=== PATIENT | male | born 1960 | race Caucasian/White ===

== ENCOUNTER 2024-11-13 14:36 | Emergency (ER) | payer MEDICARE, OTHER, SELFPAY ==
[2024-11-13 14:40] VITALS: BP 129/86; PULSE 80; RESP 16; TEMP 36.6; O2SAT 94; BMI 25.2
--- OUTSIDE RECORDS SUMMARY | 2024-11-13 14:40 | XMS_ITS | Clinical Summary ---
Author Organization [facility] Address [facility] [place] [address] Care Team Providers Care Supervisor Central Supply Name Role Phone Yoan Chavez MD Primary Care Provider [phone] Zabrina Harkins Unavailable Meghna Darby RN Unavailable [phone] Elena Bowens VIDEO LIBRARY ASSISTANT Unavailable [phone] Marialuisa Manning PharmD Unavailable [phone] Allergies Active Allergy Reactions Criticality Noted Date Comments Haloperidol Agitation High 03/02/2013 Medications divalproex 250 mg Delayed-Release tabletIndication s:Schizoaffectiv e disorder, unspecified type (HC) TAKE ONE TABLET BY MOUTH AT BEDTIME; TAKE WITH ONE 500 MG TABLET FOR A TOTAL DOSE OF 750 MG AT BEDTIME 30 Tablet 2 5 Active divalproex 500 mg Delayed-Release tabletIndication s:Schizoaffectiv e disorder, unspecified type (HC) Take 1 Tablet (500 mg) by mouth at bedtime. 30 Tablet 2 5 Active hydrOXYzine HCL 25 mg tabletIndication s:Anxiety,Schizo affective disorder, unspecified type (HC) Take 1-2 Tablets (25-50 mg) by mouth at bedtime if needed for Anxiety (sleep). 60 Tablet 2 5 Active Advair Diskus 250-50 mcg/dose diskus inhalerIndicatio ns:COPD, moderate (HC) INHALE ONE PUFF BY MOUTH EVERY 12 HOURS 180 Each 2 11/08/19 25 Discontinu ed(*Med complete/R egimen complete/L evel of care change) cetirizine (ZYRTEC) 10 mg tabletIndication s:Urticaria Take 1 Tablet (10 mg) by mouth once daily. 90 Tablet 3 2 11/08/19 25 Discontinu ed(*Med complete/R egimen complete/L evel of care change) albuterol HFA (PRO-AIR; VENTOLIN; PROVENTIL) 90 mcg/actuation inhalerIndicatio ns:COPD, moderate (HC) INHALE ONE TO TWO PUFFS BY MOUTH EVERY FOUR HOURS WHILE AWAKE DIRECTED Strength: 90 mcg/actuatio n 1 Each 3 11/08/19 25 Discontinu ed(*Med complete/R egimen complete/L evel of care change) celecoxib (CELEBREX) 100 mg capsuleIndicatio ns:Polyarthralgi a Take 1 Capsule (100 mg) by mouth two times daily with meals. 180 Capsule 4 11/08/19 25 Discontinu ed(*Med complete/R egimen complete/L evel of care change) divalproex (DEPAKOTE) 250 mg Delayed-Release tabletIndication s:Schizoaffectiv e disorder, unspecified type (HC) TAKE ONE TABLET BY MOUTH AT BEDTIME; TAKE WITH ONE 500 MG TABLET FOR A TOTAL DOSE OF 750 MG AT BEDTIME 30 Tablet 2 5 10/18/19 25 Discontinu ed(Reorder (E-cancel not sent)) divalproex (DEPAKOTE) 500 mg Delayed-Release tabletIndication s:Schizoaffectiv e disorder, unspecified type (HC) Take 1 Tablet (500 mg) by mouth at bedtime. 30 Tablet 2 5 10/18/19 25 Discontinu ed(Reorder (E-cancel not sent)) hydrOXYzine HCL (ATARAX) 25 mg tabletIndication s:Schizoaffectiv e disorder, unspecified type (HC),Anxiety Take 1-2 Tablets (25-50 mg) by mouth at bedtime if needed for Anxiety (sleep). 60 Tablet 2 01/10/18/19 25 Discontinu ed(Reorder (E-cancel not sent)) Active Problems Problem Noted Date Diagnosed Date Anxiety 01/25/2024 Schizoaffective disorder 03/18/2023 Bipolar disorder 02/01/2023 Other schizoaffective disorders 02/01/2023 Thoracic aortic aneurysm 08/19/2016 Overview (07/20/2020): 4.5 cm on echo 2020 - repeat in 1 year Renal mass 08/19/2016 Overview (08/19/2016): Identified on CT 08/2016 - MRI ordered to further characterize COPD, moderate 06/03/2016 Resolved Problems Problem Noted Date Diagnosed Date Resolved Date Alcoholic intoxication 12/01/202110/25 Bipolar disorder 08/18/2011 09/30/2022 Encounters Date Type Department Care Team Description 11/07/2024 2:30 PM CDT Pharmacist Medication Management [facility] [address] [place] [address] Marialuisa Manning, SheltonD Pharmacist Medication Management (CMR initial - CCM patient - phone visit) 11/07/2024 Travel 11/06/2024 1:00 PM CDT Patient Outreach [facility] Care Management - Advanced Care Team [address] [place] [id number] Elena Bowens LSW Complex Care Management (F/u) 11/02/2024 12:30 PM CDT Patient Outreach [facility] Health Care Management - Advanced Care Team [address] [place] [address] Meghna Darby, tire changer aircraft Management (IA fully completed) 10/31/2024 1:00 PM CDT Patient Outreach [facility] Health Care Management - Advanced Care Team [address] [place] [phone] Zabrina Harkins Complex Care Management (Follow-up: Food Assistance, [facility]) 10/31/2024 Travel 10/26/2024 Patient Outreach [facility] Health Care Management - Advanced Care Team [address] [place] [address] Jovita Garg Complex Care Management (CCM Engagement Outreach/) 10/17/2024 2:15 PM CDT Office Visit [facility] [address] [place], [place] [id number] Anita Maria, LUDIN Medication Management (Things are going fine) 10/17/2024 Travel from Last 3 Months Immunizations Immunization Administration Dates Next Due AMB Influenza, IIV3 (Age >=3 years)(Flu Clinic Only) 05/12/2010,04/16/2009 COVID-19 vaccine (Moderna 100mcg/0.5mL) PF, MDV 09/26/2020,08/26/2020 COVID-19 vaccine (Pfizer-Bio NTech 30mcg/0.3mL) 12YO+ BIVALENT PF, MDV 05/14/2022 COVID-19 vaccine (Pfizer-Bio NTech 30mcg/0.3mL) 12YO+ GREGORY-SUCROSE PF, MDV 01/30/2022 COVID-19 vaccine (Pfizer-Bio NTech 30mcg/0.3mL) PF, MDV 07/02/2021 Hepatitis B (Adult) 10/06/2011,09/07/2011 Influenza, CCIIV3 (Age >=6 M O) (Egg Free) 03/26/2014 Influenza, IIV4 07/07/2021, 0,03/21/2019,2014 Influenza, IIV4 (=>6mos) MDV 07/31/2017 Influenza, Inactivated AIIV4 (Age 65+ Years) Preserv Free 03/16/2020 Pneumococcal Poly,23-Valent (Pneumovax) 09/13/2019 Tdap 08/24/2014 Zoster (Shingrix-RZV, recombinant) 12/21/2022, Family History Medical History Relation Name Comments Other Mother copd, lung kidn ey transplant Relation Name Status Comments Mother Social History Tobacco Use Types Packs/Day Years Used Date Smoking Tobacco: Every Day Cigarettes 0.5 2.4 Started: 06/2022 Smokeless Tobacco: Never Tobacco Cessation:Ready to Q uit: No; Counseling Given: Yes Comments:About half a pk a day Alcohol Use Standard Drinks/Week Comments Yes 0 (1 standard drink = 0.6 oz pure alcohol) just a little bit, once in awhile PHQ-2 Answer Date Recorded PHQ-2 TOTAL SCORE 1 10/17/2024 Social Connections Answer Date Recorded Do you often feel lonely or isolated from those around you? 4 11/02/2024 Financial Resource Strain Answer Date R ecorded Difficulty of Paying Living Expenses 3 11/02/2024 Difficulty of Paying Living Expenses Not on file 11/02/2024 Food Insecurity Answer Date Recorded Do you worry your food will run out before you are able to buy more? 1 11/02/2024 Transportation Needs Answer Date Record ed Does lack of transportation keep you from medica l appointments? 1 11/02/2024 Does lack of transportation keep you from work, meetings or getting things that you need? 2 11/02/2024 Housing Stability Answer Date Recorded What is your housing situation today? 1 11/02/2024 Utilities Answer Date Recorded Do you have trouble paying f or utilities (for example, heat, electricity, water, phone)? 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 Gender Identity Not on file Sexual Orientation Not on file Occupation Industry Job Start Date Job End Date disability Not on file Not on file Not on file Obstetrics History Last Filed Vital Signs Vital Sign Reading Time Taken Comments Blood Pressure 122/84 10/17/2024 2:11 PM CDT Pulse 74 10/17/2024 2:11 PM CDT Temperature 36.7 C (98.1 F) 05/26/2024 11:18 AM FOUNDER / CEO Respiratory Rate 20 05/10/2019 3:20 PM CDT Oxygen Saturation 93% 05/26/2024 11: 18 AM FOUNDER / CEO Inhaled Oxygen Concentration - - Weight 75.2 kg (165 lb 11.2 oz) 10/17/2024 2:11 PM CDT Height 172.7 cm (5' 8) 05/26/2024 11:1 8 AM FOUNDER / CEO Body Mass Index 25.19 05/26/2024 11:18 AM FOUNDER / CEO Plan of Treatment Upcoming Encounters Date Type Department Care Team (Late st Contact Info) Description 11/16/2024 1:00 PM CDT Patient Outreach [facility] Care Management - Advanced Care Team [address] [place], [place] [phone] Elena Bowens LSW [address] [place] [address] 11/22/2024 4:00 PM CDT Pharmacist Medication Management [facility] [address] [place] [address] Marialuisa Manning, PharmD [facility] [place] [phone] 12/11/2024 10:00 AM CDT Orders Only [facility] [address] [place] [address] Lab, [place] 01/24/2025 2:45 PM CDT Office Visit [facility] [address] [place] [address] Anita Maria NP [address] [place] [address] Health Maintenance Due Date Last Done Comments RSV vaccine for adults or (1 - Risk 60-74 years 1-dose series) 2019 Pneumococcal series for age 50+ (2 of 2 - PCV) 09/12/2020 09/13/2019 Fecal testing non-DNA (FIT,FOBT,iFOBT) for age 45-75 10/07/2023 10/06/2022, 08/17/2016 COVID-19 vaccine series ( season) 2024 05/14/2022, 01/30/2022, 07/02/2021, Additional history exists AAA screening age 65-74 2024 Medicare Wellness for age 65+ 2024, 03/20/2019, 11/02/2014 Tetanus booster 08/24/2024 08/24/2014 Influenza Vaccine (Season Ended) 2025 07/07/2021, 03/16/2020, 03/16/2020, Additional history exists BMI (ht and wt on same day) for age 18+ 05/26/2025 05/26/2024, 12/01/2022, 07/02/2020, Additional history exists Depression screening for age 12+ 10/17/2025 10/17/2024, 07/18/2024, 05/30/2024, Additional history exists Lipids for age 45-75 10/25/2028 10/26/2023, 07/02/2020, 02/17/2019, Additional history exists Tdap Completed 08/24/2014 HIV for age 15-65 Completed 04/02/2015, 08/18/2011 Hepatitis C screening for ag e 18-79 Completed 04/02/2015, 08/18/2011 Zoster (shingles) series for age 50+ Completed 12/21/2022, 10/09/2022 Procedures Procedure Name Priority Date/Time Associated Diagnosis Comments LIPID PANEL Routine 10/26/2023 2:30 PM CDT Screening, lipid OCCULT BLOOD IFOBT STOOL Routine 10/06/2022 11:01 AM CDT Screening for colon cancer ANTI HIV 1/2 Routine 04/02/2015 2:29 PM CDT Screen for STD (sexually transmitted disease) ANTI HCV Routine 04/02/2015 2:29 PM CDT Screen for STD (sexually transmitted disease) from Last 3 Months or Most Recently Relevant to Health Maintenance Results * (ABNORMAL) LIPID PANEL (10/26/2023 2:30 PM CDT) Pathologist [facility] CHOLESTEROL,TOTAL 213(H) 100 - 199 mg/dL 10/26/2023 10:14 PM CDT [facility] Comment: Cholesterol, Total Reference Ranges Desirable <200 mg/dL Borderline 200-239 mg/dL High >=240 mg/dL TRIGLYCERIDES 111 <150 mg/dL 10/26/2023 10:14 PM CDT [facility] HDL CHOLESTEROL 38(L) >40 mg/dL 10:14 PM CDT [facility] NON-HDL CHOLESTEROL 175(H) <145 mg/dl 10/26/2023 10:14 PM CDT [facility] CHOL/HDL RATIO 5.61(H) <4.50 10/26/2023 10:14 PM CDT [facility] LDL CHOLESTEROL 153(H) <=130 mg/dL 10/26/2023 10:14 PM CDT [facility] VLDL CHOLESTEROL 22 <=30 mg/dL 10/26/2023 10:14 PM CDT [facility] PROVIDER ORDERED STATUS RANDOM 10/26/2023 10:14 PM CDT [facility] Blood BLOOD SPECIMEN / Unknown Venipuncture / Unknown 10/26/2023 2:30 PM CDT 10/26/2023 2:33 PM CDT Yoan Chavez MD CHEMISTRY Final Resu lt [facility] [address] [place] [address], * OCCULT BLOOD IFOBT STOOL [[id number]] (10/06/2022 11:01 AM CDT) STOOL BLOOD ,IFOBT Negative Negative 10/12/2022 3:19 PM CDT [facility] Stool STOOL SPECIMEN / Unknown Non-Blood / Unknown 10/06/2022 11:01 AM CDT 10/12/2022 11:02 AM CDT Yoan Chavez MD LABORATORY Final Resu lt [facility] [address] [place] [address], * ANTI HCV (04/02/2015 2:29 PM CDT) HEPATITIS C ANTIBODY Non-Reacti ve Non-Reacti ve 04/02/2015 7:03 PM CDT [facility] Blood specimen (specimen) BLOOD SPECIMEN / Unknown Venipuncture / Unknown 04/02/2015 2:29 PM CDT 04/02/2015 2:29 PM CDT Narrative [facility] - 04/02/2015 7:03 PM CDT Antibodies to HCV not detected; does not exclude the possibility of exposure to HCV. Yoan Chavez MD SEND OUTS Final Resu lt [facility] [address] [place] [address], [place] * ANTI HIV 1/2 (04/02/2015 2:29 PM CDT) HIV-1/HIV-2 ANTIBODY Non-Reacti ve Non-Reacti ve 04/02/2015 7:04 PM CDT [facility] Blood specimen (specimen) BLOOD SPECIMEN / Unknown Venipuncture / Unknown 04/02/2015 2:29 PM CDT 04/02/2015 2:29 PM CDT Narrative [facility] - 04/02/2015 7:04 PM CDT HIV-1 p24 and HIV-1/HIV-2 Ab not detected Yoan Chavez MD SEND OUTS Final Resu lt Performing Organization Address City/[facility]/ZIP Co de Phone Number [facility] [address] [place] [address], from Last 3 Months or Most Recently Relevant to Health Maintenance Insurance MEDICARE PB ONLY MEDICARE PART A HB ONLY MEDICARE PART B HB ONLY MEDICA CHOICE CARE Care Teams Supervisor Central Supply Relationship Specialty Start Date End Date Yoan Chavez MD [address] [place] [phone] PCP - General Family Practice 08/02/13 Zabrina Harkins [address] [place] [address] Complex Care Management Care Guide 10/27/24 Meghna Darby, MINDA [address] [place] [address] Complex Care Management Registered Nurse 10/27/24 Elena Bowens LSW [address] [place] [address] Complex Care Management Manager Work 11/02/24 Marialuisa Manning, Stacy [address] [place] [phone] Pharmacist Medication Management Pharmacology 11/02/24 11/03/27
--- NOTE | 2024-11-13 15:14 | ED.GENADULT ---
HPI - General Adult General Date Seen: 11/13/24 Chief complaint: Dental/Oral/Mouth Injury/Pain Stated complaint: Dental issues, sent by [facility] Time Seen by Provider: 11/13/24 15:14 History of Present Illness HPI narrative: 64 yo M who is sent to the emergency department today by his dentist. His dentist feel that he needs to be admitted for IV antibiotics because he has had swelling on the left side of his jaw for 3-5 days. He apparently was at his dentist's office today and they were concerned about the increasing swelling. He does not have any history of diabetes, cancer, immunosuppression. He is a smoker and has a COPD. He uses Advair and albuterol for that. No oral steroids. He has had trouble with his teeth for a long time. He notes that probably last fall he had a fracture of the 1st molar on his left lower jaw. He had a little bit of pain after that but it got better. Lately, since last week he started having increasing pain and since last Wednesday or and had developing swelling on the left gums and his left lower cheek. He decided to go to the dentist. He went into the [place] dental clinic today and they saw that he had an abscess and infection there. He is apparently scheduled to have the tooth pulled by an oral surgeon tomorrow at the dental clinic in [place] but was told by his dentist that he should come to the ER to get some IV antibiotics today to start treating the infection. He has no history of diabetes or immunosuppression. No history of cancer. Related Data Home Medications ?Medication ?Instructions ?Recorded ?Confirmed divalproex 250 mg tablet,delayed PO 11/13/24 release divalproex 500 mg tablet,delayed PO 11/13/24 release hydroxyzine HCl 25 mg tablet 25 mg PO BID 11/13/24 11/13/24 Allergies Allergy/AdvReac Type Severity Reaction Status Date / Time haloperidol (From Haldol) Allergy Unknown Verified 11/13/24 14:42 [facility] Social History Smoking Status: Unknown if ever smoked Exam Narrative: Exam Narrative: Constitutional: Appears well-developed and well-nourished. Alert. Conversant. Non toxic. HENT: Head: Atraumatic. Nose: Nose normal. He has subtle swelling on the left lower cheek adjacent to his left mandible body. I do not see submandibular swelling. No trismus. No evidence for Reyes's angina or submandibular abscess. Mouth/Throat: Oral mucosa is clear and moist. no trismus. Pharynx normal. Tonsils symmetric. No tonsillar enlargement, erythema, or exudate. Airway patent. Phonation normal. No signs of any submandibular swelling or deviation of the tongue. He does have swelling of the gingival tissue on the left mandible lateral to the anterior molar there (tooth number 19) with roughly a 1 cm area of swelling and fluctuance. Suspicious for a gingival abscess. Eyes: Conjunctivae normal. EOM normal. Pupils equal, round, and reactive to light. No scleral icterus. Neck: Normal range of motion. Neck supple. No tracheal deviation present. Cardiovascular: Normal rate, regular rhythm. No gallop. No friction rub. No murmur heard. Symmetric radial artery pulses Pulmonary/Chest: Effort normal. No stridor. No respiratory distress. No wheezes. No rales. No rhonchi . No tenderness. Musculoskeletal: RUE: Normal range of motion. No tenderness. No deformity LUE: Normal range of motion. No tenderness. No deformity RLE: Normal range of motion. No edema. No tenderness. No deformity LLE: Normal range of motion. No edema. No tenderness. No deformity Lymph: No anterior or posterior cervical or submental adenopathy. Neurological: Alert and oriented to person, place, and time. Normal strength. CN II-VII intact. No sensory deficit. GCS eye subscore is 4. GCS verbal subscore is 5. GCS motor subscore is 6. Normal coordination Skin: Skin is warm and dry. No rash noted. No pallor. Normal capillary refill. Psychiatric: Normal mood. Normal affect. Const: Vital Signs, click to edit/add: Vital Signs - 24 hr 11/13/24 14:40 11/13/24 16:30 Temperature 97.9 F Pulse Rate [Pulse Oximeter] 80 68 Respiratory Rate 16 Blood Pressure [Ri ght Upper Arm] 129/86 121/82 Pulse Oximetry 94 93 Oxygen Delivery Me thod Room Air Room Air Course Course ED Course: Procedure: Left inferior alveolar nerve block Indication: Dental and jaw pain from left-sided mandibular gingival abscess Verbal consent obtained from the patient. Patient was positioned and prepared appropriately. Block was performed using landmark technique. Infiltration of a total of 4 mL of 1% lidocaine with epi was achieved. Aspiration confirmed no intravascular injection. Patient noted subsequent numbness of his left lip, tongue, jaw. No complications were noted. Procedure: Incision and drainage of left gingival abscess Indication: Gingival abscess Verbal consent from the patient After appropriate anesthesia I used a 18 gauge needle tip to open the wound and created a small incision with subsequent drainage of 1 or 2 mL of purulent bloody fluid. Patient tolerated the procedure well. Vital Signs Vital signs: Initial Vital Signs Temperature 97.9 F 11/13/24 14:40 Temperature Source Temporal Artery Scan 11/13/24 14:40 Pulse Rate 80 11/13/24 14:40 Respiratory Rate 16 11/13/24 14:40 Blood Pressure 129/86 11/13/24 14:40 Blood Pressure Mean 100 11/13/24 14:40 Blood Pressure Position Sitting 11/13/24 14:40 Pulse Oximetry 94 11/13/24 14:40 Oxygen Delivery Method Room Air 11/13/24 14:40 Vital Signs Temperature 97.9 F 11/13/24 14:40 Pulse Rate 80 11/13/24 14:40 Respiratory Rate 16 11/13/24 14:40 Blood Pressure 129/86 11/13/24 14:40 Pulse Oximetry 94 11/13/24 14:40 Oxygen Delivery Method Room Air 11/13/24 14:40 Temperature 97.9 F 11/13/24 14:40 Pulse Rate 68 11/13/24 16:30 Respiratory Rate 16 11/13/24 14:40 Blood Pressure 121/82 11/13/24 16:30 Pulse Oximetry 93 11/13/24 16:30 Oxygen Delivery Method Room Air 11/13/24 16:30 Medications Administered Medications: Discontinued Medications Generic Name Dose Route Start Last Admin Trade Name Freq PRN Reason Stop Dose Admin Ampicillin Sodium/Sulbactam 100 mls @ 200 mls/hr 11/13/24 15:38 11/13/24 16:20 Sodium 3 gm/ Sodium Chloride IVPB 11/13/24 15:39 Infused ONCE ONE Infusion Medical Decision Making MDM Narrative Medical decision making narrative: This patient was referred to the ER today by his dentist with a tooth ache with swelling of his left mandibular gums and left cheek.. The differential diagnosis includes: cracked tooth syndrome, pulpitis, sub-apical abscess, amongst others. There is no abscess detected around the tooth amenable to incision and drainage. Exam reveals evidence for a left-sided gingival abscess. I suspect is probably also a small amount of reactive facial cellulitis around it. Fortunately do not see any submandibular swelling or abscess or any sign of Reyes's angina. There are no posterior pharyngeal space infections detected. We started the patient on IV antibiotics (Unasyn )here in the ER . Labs are reassuring with normal white count, normal kidney function, blood sugar, normal lactic acid. Overall the patient is nonseptic, afebrile, nontoxic. Will discharge home with Augmentin. In addition to antibiotics did perform initial incision and drainage of the gingival abscess, as above. Patient has an appointment to see the dentist and oral surgeon tomorrow here in [place]. He is advised to keep that appointment understands the risk of worsening infection. Precautions for return to the ER reviewed. Lab Data Labs: Lab Results 11/13/24 Range/Units 15:40 WBC 8.12 (4.50-11.00) K/uL RBC 4.71 (4.30-5.90) m/uL Hgb 15.0 (13.5-17.5) gm/dL Hct 44.4 (37.0-53.0) % MCV 94 (80-100) fL MCH 32 (26-34) pg MCHC 34 (32-36) gm/dL RDW Coeff of Tony 13.7 (11.5-15.5) % Plt Count 203 (140-440) K/uL Neut % (Auto) 63.5 (42.0-72.0) % Lymph % (Auto) 21.3 (20-44) % Sargent % (Auto) 12.6 H (0.0-11.0) % Eos % (Auto) 2.0 (0.0-7.0) % Baso % (Auto) 0.5 (0.0-3.0) % Neut # (Auto) 5.16 (1.7-7.0) K/uL Lymph # (Auto) 1.73 (0.90-2.90) K/uL Sargent # (Auto) 1.00 H (0.00-0.90) K/UL Eos # (Auto) 0.16 (0.00-0.50) K/uL Baso # (Auto) 0.04 (0.00-0.30) K/uL Abs Immat Gran (auto) 0.01 (0.00-0.30) K/uL Imm/Tot Granulo (auto) 0.1 % Sodium 142 (135-149) mmol/L Potassium 4.1 (3.6-5.1) mmol/L Chloride 107 (96-114) mmol/L Carbon Dioxide 27 (20-32) mmol/L Anion Gap 8 (7-15) mEq/L BUN 16 (7-30) mg/dL Creatinine 0.7 (0.5-1.5) mg/dL Estimated Creat Clear 71.25 Estimated GFR 102 ml/min Glucose 82 (60-115) mg/dL Lactate 0.7 (0.5-1.9) mmol/L Calcium 9.5 (8.4-10.6) mg/dL Discharge Plan Discharge Clinical Impression: Gingival abscess, Cellulitis of face Patient Disposition: Home, Self-Care Condition: Stable Instructions: Dental Abscess (ED), Cellulitis (ED) Additional Instructions: As we discussed, it is elda important for you to follow-up with your dentist and oral surgeon tomorrow for further care. Please come back to the ER if you have problems especially high fever, worsening swelling, trouble swallowing, trouble breathing. For tonight, continue on antibiotics and take your next dose of the oral antibiotic tonight before you go to bed and take a dose tomorrow morning when you wake up. If you need it, you can use the prescription pain killer ([place]). Be careful because [place] causes dizziness, drowsiness, constipation, and can be addictive. Do not mix [place] with alcohol. Be careful for the next several hours. While your lip is numb you could easily burn it with hot coffee or cigarettes. Prescriptions: No Action divalproex 250 mg tablet,delayed release (DR/EC) PO divalproex 500 mg tablet,delayed release (DR/EC) PO hydroxyzine HCl 25 mg tablet 25 mg PO BID Follow Up/Referrals: Yoan Chavez MD [Primary Care Provider] - Stand Alone Forms: [facility] Info Instructions
[2024-11-13] MEDS: AMPICILLIN/SULBACTAM 3 GM in 0.9 % SODIUM CHLORIDE Mini-bag 100 ML IVPB (15:49)
[2024-11-13 15:59] LABS: Lactate* 0.7 mmol/L (0.5-1.9)
[2024-11-13 16:07] LABS: Basophils Absolute Auto 0.04 K/uL (0.00-0.30); Basophils Percent Auto 0.5 % (0.0-3.0); Eosinophils Absolute Auto 0.16 K/uL (0.00-0.50); Hematocrit 44.4 % (37.0-53.0); Immature Granulocytes Abs Auto 0.01 K/uL (0.00-0.30); Immature Granulocytes Pct Auto 0.1 %; Lymphocytes Absolute Auto 1.73 K/uL (0.90-2.90); Lymphocytes Percent Auto 21.3 % (20-44); Mean Corpuscular HGB Conc 34 gm/dL (32-36); Mean Corpuscular Hemoglobin 32 pg (26-34); Mean Corpuscular Volume 94 fL (80-100); Monocytes Percent Auto 12.6 % (0.0-11.0); Neutrophils Absolute Auto 5.16 K/uL (1.7-7.0); Neutrophils Percent Auto 63.5 % (42.0-72.0); Platelet Count* 203 K/uL (140-440); RDW Coefficient of Variation % 13.7 % (11.5-15.5); Red Blood Count 4.71 m/uL (4.30-5.90); White Blood Count* 8.12 K/uL (4.50-11.00)
[2024-11-13 16:09] LABS: Slide Review Reflex No
--- OUTSIDE RECORDS SUMMARY | 2024-11-13 16:10 | XMS_ITS | Clinical Summary ---
Author Organization [facility] Address [facility] [place] [address] Care Team Providers Care Wine Manager Name Role Phone Yoan Chavez MD Primary Care Provider [phone] Zabrina Harkins Unavailable Meghna Darby RN Unavailable [phone] Elena Bowens VOLTMETER OPERATOR Unavailable [phone] Marialuisa Manning PharmD Unavailable [phone] Allergies Active Allergy Reactions Criticality Noted Date [...] 11/07/2024 2:30 PM CDT Pharmacist Medication Management [facility] [address] [place] [address] Marialuisa Manning, SheltonD Pharmacist Medication Management (CMR initial - CCM patient - phone visit) 11/07/2024 Travel 11/06/2024 1:00 PM CDT Patient Outreach [facility] Health Care Management - Advanced Care Team [address] [place] [phone] Elena Bowens LSW Complex Care Management (F/u) 11/02/2024 12:30 PM CDT Patient Outreach [facility] Health Care Management - Advanced Care Team [address] [place] [phone] Meghna Darby, ivory carver Management (IA fully completed) 10/31/2024 1:00 PM CDT Patient Outreach [facility] Health Care Management - Advanced Care Team [address] [place] [phone] Zabrina Harkins Complex Care Management (Follow-up: Food Assistance, [facility]) 10/31/2024 Travel 10/26/2024 Patient Outreach [facility] Health Care Management - Advanced Care Team [address] [place] [phone] Jovita Garg Complex Care Management (CCM Engagement Outreach/) 10/17/2024 2:15 PM CDT Office Visit [facility] [address] [place], [place] [id number] Anita Maria, LUDIN Medication Management (Things are [...] on file Legal Sex Male 6:36 AM SYSTEM ANALYST Gender Identity Not on file Sexual Orientation Not on file Occupation Industry Job Start Date Job End Date disability Not on file Not on file Not on file Obstetrics History Last Filed Vital Signs Vital Sign Reading Time Taken Comments Blood Pressure 122/84 10/17/2024 2:11 PM CDT Pulse 74 10/17/2024 2:11 PM CDT Temperature 36.7 C (98.1 F) 05/26/2024 11:18 AM SYSTEM ANALYST Respiratory Rate 20 05/10/2019 3:20 PM CDT Oxygen Saturation 93% 05/26/2024 11: 18 AM SYSTEM ANALYST Inhaled Oxygen Concentration - - Weight 75.2 kg (165 lb 11.2 oz) 10/17/2024 2:11 PM CDT Height 172.7 cm (5' 8) 05/26/2024 11:1 8 AM SYSTEM ANALYST Body Mass Index 25.19 05/26/2024 11:18 AM SYSTEM ANALYST Plan of Treatment Upcoming Encounters Date Type Department Care Team (Late st Contact Info) Description 11/16/2024 1:00 PM CDT Patient Outreach [facility] Care Management - Advanced Care Team [address] [place], [place] [phone] Elena Bowens LSW [address] [place] [address] 11/22/2024 4:00 PM CDT Pharmacist Medication Management [facility] [address] [place] [address] Marialuisa Manning, PharmD [address] [facility] [place] [address] 12/11/2024 10:00 AM CDT Orders Only [facility] [address] [place] [address] Lab, [place] 01/24/2025 2:45 PM CDT Office Visit [facility] [address] [place] [address] Anita Maria NP [address] [place] [address] Health Maintenance Due Date Last Done Comments [...] LIPID PANEL (10/26/2023 2:30 PM CDT) Pathologist [facility] CHOLESTEROL,TOTAL 213(H) 100 - 199 mg/dL 10/26/2023 10:14 PM CDT [facility] Comment: Cholesterol, Total Reference Ranges Desirable <200 mg/dL Borderline 200-239 mg/dL High >=240 mg/dL TRIGLYCERIDES 111 <150 mg/dL 10/26/2023 10:14 PM CDT [facility] HDL CHOLESTEROL 38(L) >40 mg/dL 10:14 PM CDT [facility] NON-HDL CHOLESTEROL 175(H) <145 mg/dl 10/26/2023 10:14 PM CDT [facility] CHOL/HDL RATIO 5.61(H) <4.50 10/26/2023 10:14 PM CDT [facility] LDL CHOLESTEROL 153(H) <=130 mg/dL 10/26/2023 10:14 PM CDT [facility] VLDL CHOLESTEROL 22 <=30 mg/dL 10/26/2023 10:14 PM CDT [facility] PROVIDER ORDERED STATUS RANDOM 10/26/2023 10:14 PM CDT [facility] Blood BLOOD SPECIMEN / Unknown Venipuncture / Unknown 10/26/2023 2:30 PM CDT 10/26/2023 2:33 PM CDT Yoan Chavez MD CHEMISTRY Final Resu lt [facility] [address] [place] [address], * OCCULT BLOOD IFOBT STOOL [[id number]] (10/06/2022 11:01 AM CDT) STOOL BLOOD ,IFOBT Negative Negative 10/12/2022 3:19 PM CDT [facility] Stool STOOL SPECIMEN / Unknown Non-Blood / Unknown 10/06/2022 11:01 AM CDT 10/12/2022 11:02 AM CDT Yoan Chavez MD LABORATORY Final Resu lt [facility] [address] [place] [address], * ANTI HCV (04/02/2015 2:29 PM CDT) HEPATITIS C ANTIBODY Non-Reacti ve Non-Reacti ve 04/02/2015 7:03 PM CDT [facility] Blood specimen (specimen) BLOOD SPECIMEN / Unknown Venipuncture / Unknown 04/02/2015 2:29 PM CDT 04/02/2015 2:29 PM CDT Narrative [facility] - 04/02/2015 7:03 PM CDT Antibodies to HCV not detected; does not exclude the possibility of exposure to HCV. Yoan Chavez MD SEND OUTS Final Resu lt [facility] [address] [place] [address], [place] * ANTI HIV 1/2 (04/02/2015 2:29 PM CDT) HIV-1/HIV-2 ANTIBODY Non-Reacti ve Non-Reacti ve 04/02/2015 7:04 PM CDT [facility] Blood specimen (specimen) BLOOD SPECIMEN / Unknown Venipuncture / Unknown 04/02/2015 2:29 PM CDT 04/02/2015 2:29 PM CDT Narrative [facility] - 04/02/2015 7:04 PM CDT HIV-1 p24 and HIV-1/HIV-2 Ab not detected Yoan Chavez MD SEND OUTS Final Resu lt Performing Organization Address City/[facility]/ZIP Co de Phone Number [facility] [address] [place] [address], from Last 3 Months or Most Recently Relevant to Health Maintenance Insurance MEDICARE PB ONLY MEDICARE PART A HB ONLY MEDICARE PART B HB ONLY MEDICA CHOICE CARE Care Teams Wine Manager Relationship Specialty Start Date End Date Yoan Chavez MD [address] [place] [id number] PCP - General Family Practice 08/02/13 Zabrina Harkins [address] [place] [address] Complex Care Management Care Guide 10/27/24 Meghna Darby, MINDA [address] [place] [address] Complex Care Management Registered Nurse 10/27/24 Elena Bowens LSW [address] [place] [address] Complex Care Management [employer] 11/02/24 Marialuisa Manning, Stacy [address] [place] [phone] Pharmacist Medication Management Pharmacology 11/02/24 11/03/27
[2024-11-13 16:17] LABS: Chloride* 107 mmol/L (96-114); Potassium* 4.1 mmol/L (3.6-5.1); Sodium* 142 mmol/L (135-149)
[2024-11-13 16:20] LABS: Anion Gap 8 mEq/L (7-15); Blood Urea Nitrogen* 16 mg/dL (7-30); Calcium* 9.5 mg/dL (8.4-10.6); Carbon Dioxide* 27 mmol/L (20-32); Creatinine* 0.7 mg/dL (0.5-1.5); Est. Creatinine Clearance* 71.25; Estimated Glomerular Filt Rate 102 ml/min; Glucose* 82 mg/dL (60-115)
[2024-11-13 16:30] VITALS: BP 121/82; PULSE 68; O2SAT 93
== END 2024-11-13 17:07 | disposition home or self-care (01) ==
PROVIDERS: Emergency Provider Emergency Medicine; PCP Surgery
DX: L03.211 Cellulitis of face (principal); K04.7 Periapical abscess without sinus
CPT/HCPCS: 41800; 36415; 80048; 83605; 85025; 99283; 99284; J0295

== ENCOUNTER 2025-01-04 17:20 | Outpatient (CLI) | payer MEDICARE, OTHER, SELFPAY ==
--- NOTE | 2025-01-05 10:00 | ED.NURSE ---
Patient's sister called reporting she missed a call from the hospital, she's wondering about her brother (patient). Explained to caller that above patient is not a current patient at the [place] [facility] or [facility]. Caller requesting we determine where the call came from that she missed. Explained I do not have the ability to do so, asked if she could listen to the message left. Caller questions if she can speak with clinic or urgent care, transferred to urgent care.
== END 2025-01-04 17:21 | disposition home or self-care (01) ==
LOC: NFLDUCREF 17:20
PROVIDERS: PCP Surgery; Visit Provider Physician Assistant Surgical
DX: L03.116 Cellulitis of left lower limb (principal); B96.89 Other specified bacterial agents as the cause of diseases classified elsewhere
CPT/HCPCS: 87070